=== PATIENT | female | born 1985 | race Caucasian/White ===

== ENCOUNTER 2016-10-31 23:33 | Emergency (ER) | payer MEDICAID ==
[~2016-10-31] VITALS: Ht 152.4 cm; Wt 63.0 kg
[2016-10-31 23:40] VITALS: Ht 152.4 cm; Wt 63.0 kg
[2016-11-01] MEDS ORDERED: IPRATROPIUM (NEB) 0.5 MG/2.5 ML AMP NEB STA (02:58)
[2016-11-01] MEDS ORDERED: ALBUTEROL 0.083% (NEB) 2.5 MG/3 ML AMP NEB STA (02:58)
--- NOTE | 2016-11-01 04:13 | RADRPT ---
PROCEDURE: XR Chest. CLINICAL INDICATION: Asthma TECHNIQUE: AP Portable chest. COMPARISON: No pertinent prior examinations were submitted for comparison. FINDINGS: The cardiomediastinal silhouette is normal. The aorta is normal. No focal consolidation, pleural eff usion or pneumothorax is seen. The osseous structures are intact. IMPRESSION: No radiographic evidence of acute cardiopulmonary disease. Physician Yusef Date Time Electronically viewed and signed by Sathya Marroquin Physician on 11/01/2016 04:12 CS/
--- NOTE | 2016-11-01 04:30 | ERD ---
ER Documentation Chief Complaint Date/Time DATE: 11/01/16 TIME: 04:27 Chief Complaint cough with sob x 2 days HPI 31-year-old female presents here to emergency department for complaints of cough and wheezing for 2 days. Patient has been having dry cough, does not cough up any phlegm or blood. Patient is episodes of wheezing, does not have any chest pain. Patient does not have any dyspnea on exertion or dizzy on lying down. Patient did not take any medications to help with symptoms. ROS All systems reviewed and are negative except as per history of present illness. Medications Home Meds Reported Medications [none] Unknown Strength No Conflict Check 11/01/16 Allergies Allergies: Coded Allergies: No Known Allergy (Unverified , 11/01/16) PMhx/Soc Immunizations: Up to date Medical and Surgical Hx: pt denies Medical Hx, pt denies Surgical Hx Hx Alcohol Use: No Hx Substance Use: No Hx Tobacco Use: No Smoking Status: Never smoker FmHx Family History: No coronary disease, No diabetes, No other Physical Exam Vitals Vital Signs Date Time Temp Pulse Resp B/P Pulse Ox O2 Delivery O2 Flow Rate FiO2 11/01/16 03:35 87 22 96 21 10/31/16 23:40 98.5 83 18 143/80 96 Physical Exam GENERAL: The patient is well developed and appropriate for usual state of health, in no apparent distress. CHEST: Clear to auscultation bilaterally. There are no rales, wheezes or rhonchi. HEART: Regular rate and rhythm. No murmurs, clicks, rubs or gallops. No S3 or S4. ABDOMEN: Soft, nontender and nondistended. Good bowel sounds. No rebound or guarding. No gross peritonitis. No gross organomegaly or masses. No Hernandez sign or McBurney point tenderness. BACK: No midline or flank tenderness. EXTREMITIES: Equal pulses bilaterally. There is no peripheral clubbing, cyanosis or edema. No focal swelling or erythema. Full range of motion. Grossly neurovascularly intact. NEURO: Alert and oriented. Cranial nerves 2-12 intact. Motor strength in all 4 extremities with 5/5 strength. Sensation grossly intact. Normal speech and gait. SKIN: There is no apparent rash or petechia. The skin is warm and dry. HEMATOLOGIC AND LYMPHATIC: There is no evidence of excessive bruising or lymphedema. No gross cervical, axillary, or inguinal lymphadenopathy. Results 24 hrs Current Medications Medications (Trade) Dose Ordered Sig/Alva Route PRN Reason Start Time Stop Time Status Last Admin Dose Admin Albuterol (Proventil 0.083% (Neb)) 5 mg ONCE STAT NEB 11/01/16 02:58 11/01/16 02:59 DC 11/01/16 03:34 Ipratropium [place] (Atrovent 0.02% (Neb)) 0.5 mg ONCE STAT NEB 11/01/16 02:58 11/01/16 02:59 DC 11/01/16 03:35 Breathing treatment of albuterol and Atrovent was given here in emergency department, after treatment, patient's lungs sounds are clear and patient's oxygenation is better. Patient verbalized feeling much better. PROCEDURE: XR Chest. CLINICAL INDICATION: Asthma TECHNIQUE: AP Portable chest. COMPARISON: No pertinent prior examinations were submitted for comparison. FINDINGS: The cardiomediastinal silhouette is normal. The aorta is normal. No focal consolidation, pleural effusion or pneumothorax is seen. The osseous structures are intact. IMPRESSION: No radiographic evidence of acute cardiopulmonary disease. Physician Yusef Date Time Electronically viewed and signed by Physician Yusef on 11/01/2016 04: 12 CS/ CC: JONAS LACEY [employer] Procedures/MDM Medical Decision Making: Patient symptoms are most likely consistent with acute bronchitis, which viral in origin. There is low suspicion for Pneumonia at this time since patients lungs sounds are clear, patient O2 saturation is normal and patient doesnt show any respiratory distress. Patients chest xray doesnt show infiltrates or any other cardiopulmonary emergencies at this time. There is low suspicion for other cardiopulmonary emergencies at this time such as CHF, Pulmonary Embolism, Pneumothorax, Aortic Aneurysm or any other cardiopulmonary emergencies at this time. There is low suspicion for sepsis. Patient appears well and is hemodynamically stable. Disposition: Home. Condition: Stable Prescriptions: Albuterol, guaifenesin DM, Zyrtec, ibuprofen Instructions: Patient is advised to take medications as prescribed. Patient is advised to rest. Patient advised to increase fluid intake, do humidifier at home and if possible, do salt water gargles. Patient is advised that if symptoms are worse, shortness of breath, uncontrolled fever, stridor, vomiting, worst signs and symptoms to return to emergency department immediately. Otherwise, patient is advised to follow up with primary doctor in 5-7 days. Disclaimer: Inadvertent spelling and grammatical errors are likely due to EHR/ dictation software use and do not reflect on the overall quality of patient care. Also, please note that the electronic time recorded on this note does not necessarily reflect the actual time of the patient encounter. Departure Diagnosis: Primary Impression: Acute bronchitis Bronchitis organism: unspecified organism Qualified Code: J20.9 - Acute bronchitis, unspecified organism Condition: Stable Patient Instructions: Bronchitis With Wheezing (Adult) Additional Instructions: Patient is advised to take medications as prescribed. Patient is advised to rest. Patient advised to increase fluid intake, do humidifier at home and if possible, do salt water gargles. Patient is advised that if symptoms are worse, shortness of breath, uncontrolled fever, stridor, vomiting, worst signs and symptoms to return to emergency department immediately. Otherwise, patient is advised to follow up with primary doctor in 5-7 days. JONAS LACEY NP Nov 01, 2016 04:30
[2016-11-01] MEDS ORDERED: ALBU8.5H3 INH (04:32)
[2016-11-01] MEDS ORDERED: GUAI120S26 PO (04:32)
[2016-11-01] MEDS ORDERED: CETI5SOL PO (04:32)
== END 2016-11-01 04:44 | disposition home or self-care (01) ==
LOC: FTE 23:33
DX: J20.9 Acute bronchitis, unspecified (principal)
CPT/HCPCS: 71010; 94664; Z7502; Z7610